=== PATIENT | male | born 1950 | race Caucasian/White ===

== ENCOUNTER 2019-03-16 08:05 | Inpatient (IN) ==
[2019-03-12 11:05] LABS: HEMATOCRIT 45.1 % (42.0-52.0); HEMOGLOBIN 14.6 g/dL (14.0-18.0); MCH 30.5 PG (27-31); MCHC 32.4 g/dL (33-37); MCV 94.4 FL (81-99); MPV 11.6 FL (7.4-10.4); RBC 4.78 XMIL (4.7-6.1); RDW 13.7 % (11.5-14.5); WBC 8.1 X1000 (4.8-10.8)
[2019-03-12 11:49] LABS: AGAP 15; BUN 15 mg/dL (8-22); CALCIUM 9.4 mg/dL (8.8-10.2); CHLORIDE 103 mmol/L (98-107); COSMO 289; CREATININE 1.1 mg/dL (0.7-1.2); ESTIMATED GFR > 60; GLUCOSE 221 mg/dL (70-104); POTASSIUM 4.6 mmol/L (3.5-5.1); SODIUM 141 mmol/L (136-145); TCO2 23 mmol/L (25-35)
[2019-03-16] MEDS ORDERED: KEFZOL 1 GM/D5W 2 GM/100 ML IVPB ONE (08:17)
[2019-03-16] MEDS ORDERED: LR 1,000 ML ONE (08:17)
[2019-03-16] MEDS ORDERED: FENTANYL ONE (10:49)
[2019-03-16] MEDS ORDERED: NEOSPORIN G.U. IRRIGANT ONE (11:02)
[2019-03-16] MEDS ORDERED: AK-FLUOR ONE (12:04)
[2019-03-16] MEDS ORDERED: NORCURON ONE (12:14)
[2019-03-16] MEDS ORDERED: DECADRON ONE (12:14)
[2019-03-16] MEDS ORDERED: XYLOCAINE-MPF 2% ONE (12:14)
[2019-03-16] MEDS ORDERED: ZOFRAN ONE (12:14)
[2019-03-16] MEDS ORDERED: OFIRMEV 1000 MG/ISOTONIC SOLN 1,000 MG/100 ML BOTTLE ONE (12:14)
[2019-03-16] MEDS ORDERED: AMIDATE ONE (12:14)
[2019-03-16] MEDS ORDERED: QUELICIN (DOSE) ONE (12:14)
[2019-03-16] MEDS ORDERED: ZEMURON ONE (13:15)
[2019-03-16] MEDS ORDERED: BRIDION ONE ×2 (13:21→13:52)
[2019-03-16] MEDS ORDERED: B & O 15A SUPP ONE (14:55)
[2019-03-16] MEDS: DILAUDID ONE ×2 (14:55→15:06)
[2019-03-16] MEDS ORDERED: NS 1,000 ML ONE (14:55)
[2019-03-16] MEDS ORDERED: SODIUM CHLORIDE 0.9% INJ PRN (15:15)
[2019-03-16] MEDS ORDERED: B & O 15A SUPP PR PRN (15:15)
[2019-03-16] MEDS ORDERED: LABETALOL IV PRN (15:15)
[2019-03-16] MEDS ORDERED: NORCO-10 PO PRN (15:15)
[2019-03-16] MEDS ORDERED: NORCO-7.5 PO PRN (15:15)
--- NOTE | 2019-03-16 17:09 | OPERATIVE NOTE ---
PROCEDURE DATE: 03/16/2019 SURGEON: Shai Mitchell MD. PREOPERATIVE DIAGNOSIS: Intermittent gross hematuria and bladder tumor. POSTOPERATIVE DIAGNOSIS: Intermittent gross hematuria and bladder tumor. PROCEDURE PERFORMED: Cystoscopic exam, left retrograde pyelogram, attempt right retrograde pyelogram but the ureteral orifice was not visualized, transurethral resection of bladder tumor greater than 10 square cm. ANESTHESIA: General endotracheal. FINDINGS: Cystoscopic exam: Urethra - greater than 26-Grenadian without stricture. Prostate - coapting lateral lobes, elevated bladder neck, length approximately 6 to 7 cm. Bladder - normal left ureteral orifice. Large papillary tumor starting at the mid trigone and going over the right side back past the trigone and up the right lateral wall to about the 11 o'clock position. Left retrograde ureteral pyelogram normal without filling defect. The right ureteral orifice was searched for, but could not be found underneath the papillary lesions. INDICATION FOR PROCEDURE: This 68-year-old male has a history of intermittent gross hematuria. Evaluation with CT scan revealed normal kidneys and a large mass in the bladder. In-office cystoscopic exam confirm the large papillary lesion. DESCRIPTION OF PROCEDURE: After informed consent was obtained from the patient and him receiving IV antibiotics, he was taken the main OR cystoscopy room, placed in the supine position. General anesthesia via endotracheal tube was placed. He was then paralyzed, placed in the low lithotomy position, and prepped and draped in the usual sterile fashion for cystoscopic exam. A 21-Grenadian sheath cystoscope was passed into the patient's urethra, prostate, and into the bladder. A 0.035 cone tip catheter was passed through the cystoscope, engaged in left ureteral orifice, contrast was injected. Again, no filling defects were seen. The right side was searched for, for about 10 minutes and could not be seen because of the large papillary lesion. The cystoscope was removed. The 26-Grenadian continuous flow Olympus resectoscope sheath was placed. The thin Gyrus loop electrode was placed. The left ureteral orifice was visualized and the tumor was resected. After 2 hours of resecting, the very superior portion of the tumor was still not resected but it was felt that he may be absorbing too much fluid and the resection was stopped. The right ureteral orifice was not visualized. The chips were removed from the bladder by irrigation. At completion, the left ureteral orifice was intact. The right side was not seen. It was searched for, however, it had been resected and will be dealt with at his second resection in 48 hours. The bladder was left distended. The resectoscope was removed. A 22-Grenadian hematuria catheter was passed through the patient's urethra, prostate, and bladder without difficulty. 30 mL of sterile water were placed in the Johnson balloon. Johnson was placed to gravity drain. The efflux was pink. Continuous bladder irrigation was started. He tolerated the procedure well. Estimated blood loss over 200 mL. He was taken to the recovery room in good condition. cc: Shai Mitchell MD
[2019-03-16] MEDS ORDERED: KLONOPIN PO PRN (19:01)
[2019-03-16] MEDS: KEFZOL 2 GM/D5W 2 GM/50 ML IVPB IV SCH (20:08)
[2019-03-16] MEDS: HUMULIN R SUBQ SCH (21:00)
[2019-03-16] MEDS: PHENERGAN IV PRN (21:08)
[2019-03-16] MEDS: PAXIL PO SCH (23:56)
[2019-03-16] MEDS: COLACE PO SCH (23:56)
[2019-03-16] MEDS: PERIDEX MT SCH (23:57)
[2019-03-16] MEDS: LIPITOR PO SCH (23:58)
[2019-03-16] MEDS: LOPRESSOR PO SCH (23:58)
[2019-03-16] MEDS: PENTASA PO SCH (23:59)
[2019-03-17] MEDS: PHENERGAN IV PRN (01:28)
[2019-03-17] MEDS: KEFZOL 2 GM/D5W 2 GM/50 ML IVPB IV SCH ×2 (05:15→10:39)
[2019-03-17] MEDS: NS 1,000 ML IV SCH ×2 (05:15→17:17)
[2019-03-17 06:55] LABS: HEMOGLOBIN 12.8 g/dL (14.0-18.0); MCV 96.9 FL (81-99); MPV 11.7 FL (7.4-10.4); RBC 4.13 XMIL (4.7-6.1); RDW 13.9 % (11.5-14.5); WBC 8.16 X1000 (4.8-10.8)
[2019-03-17] MEDS: HUMULIN R SUBQ SCH ×3 (07:00→17:52)
[2019-03-17 07:48] LABS: AGAP 11; BUN 10 mg/dL (8-22); CALCIUM 8.4 mg/dL (8.8-10.2); CHLORIDE 101 mmol/L (98-107); COSMO 278; CREATININE 1.1 mg/dL (0.7-1.2); ESTIMATED GFR > 60; GLUCOSE 161 mg/dL (70-104); SODIUM 138 mmol/L (136-145); TCO2 26 mmol/L (25-35)
--- NOTE | 2019-03-17 08:18 | Diag Imaging Result Doc PS360 ---
RETROGRADES 2 OR 3 FILMS - 03/16/2019 INDICATION: BLADDER TUMOR, LEFT RETROGRADE TECHNIQUE: Left sided ureterogram. The exam was performed by the patient's urologist. 11 images were obtained. COMPARISON: CT from 03/02/2019 FINDINGS: The left ureter and renal collecting system are normal. IMPRESSION: Negative exam. Electronically signed by Angelo Posadas 03/17/2019 8:16 AM
[2019-03-17] MEDS ORDERED: ELIQUIS PO SCH (09:00)
[2019-03-17] MEDS: COZAAR PO SCH (10:29)
[2019-03-17] MEDS: COLACE PO SCH ×2 (10:29→21:06)
[2019-03-17] MEDS: ZYLOPRIM PO SCH (10:30)
[2019-03-17] MEDS: NORVASC PO SCH (10:30)
[2019-03-17] MEDS: LOPRESSOR PO SCH ×2 (10:30→21:06)
[2019-03-17] MEDS: LOFIBRA PO SCH (10:30)
[2019-03-17] MEDS: GLUCOPHAGE PO SCH ×2 (10:30→17:23)
[2019-03-17] MEDS: PENTASA PO SCH ×4 (10:31→21:06)
[2019-03-17] MEDS: PERIDEX MT SCH ×2 (10:31→21:06)
[2019-03-17] MEDS ORDERED: TYLENOL PO PRN (17:06)
[2019-03-17] MEDS: LIPITOR PO SCH (21:06)
[2019-03-17] MEDS: PAXIL PO SCH (21:06)
[2019-03-18] MEDS: NS 1,000 ML IV SCH ×3 (00:14→13:59)
[2019-03-18] MEDS: HUMULIN R SUBQ SCH ×5 (00:14→21:00)
[2019-03-18] MEDS ORDERED: KEFZOL 1 GM/D5W 1 GM/50 ML IVPB ONE ×2 (10:15)
[2019-03-18] MEDS ORDERED: AK-FLUOR ONE (10:19)
[2019-03-18] MEDS ORDERED: DIPRIVAN 1% ONE (10:23)
[2019-03-18] MEDS ORDERED: XYLOCAINE-MPF 2% ONE (10:25)
[2019-03-18] MEDS ORDERED: REGLAN ONE (10:32)
[2019-03-18] MEDS ORDERED: PEPCID ONE (10:33)
[2019-03-18] MEDS ORDERED: ZEMURON ONE (10:49)
[2019-03-18] MEDS ORDERED: NEO-SYNEPHRINE ONE ×2 (10:56→11:40)
[2019-03-18] MEDS: ZYLOPRIM PO SCH ×2 (11:25→16:24)
[2019-03-18] MEDS: GLUCOPHAGE PO SCH ×2 (11:25→16:23)
[2019-03-18] MEDS: COLACE PO SCH ×3 (11:25→20:32)
[2019-03-18] MEDS: PENTASA PO SCH ×4 (11:26→20:32)
[2019-03-18] MEDS: NORVASC PO SCH ×2 (11:26→16:24)
[2019-03-18] MEDS: LOPRESSOR PO SCH ×2 (11:26→20:32)
[2019-03-18] MEDS: PERIDEX MT SCH ×2 (11:26→20:32)
[2019-03-18] MEDS: COZAAR PO SCH ×2 (11:27→16:23)
[2019-03-18] MEDS: LOFIBRA PO SCH ×2 (11:27→16:24)
[2019-03-18] MEDS ORDERED: ROBINUL ONE (11:48)
[2019-03-18] MEDS ORDERED: NEOSTIGMINE ONE (11:48)
[2019-03-18] MEDS ORDERED: B & O 15A SUPP ONE (13:15)
[2019-03-18] MEDS: NORCO-5 PO PRN (13:58)
--- NOTE | 2019-03-18 19:03 | OPERATIVE NOTE ---
PROCEDURE DATE: 03/18/2019 SURGEON: Shai Mitchell MD PREOPERATIVE DIAGNOSIS: Bladder tumors. POSTOPERATIVE DIAGNOSIS: Bladder tumors. PROCEDURE PERFORMED: 1. Cystoscopic exam. 2. Right retrograde ureteral pyelogram. 3. Place right double-J stent. 4. Transurethral resection of bladder tumor about 3 cm in diameter. ANESTHESIA: General endotracheal. FINDINGS: Cystoscopic exam: Urethra-greater than 26-Equatorial Guinean without stricture. Prostate - Collapsing lateral lobes elevated. Bladder neck length approximately 6.5 to 7 cm. Bladder - Normal left ureteral orifice. Right ureteral orifice was previously resected. The tumor bed that was resected 2 days ago was not bleeding and appeared to be healing well. There was remaining tumor at about the 10:30 to 12 o'clock position on the bladder neck with a diameter of about 3 cm. INDICATION FOR PROCEDURE: This 68-year-old male had intermittent gross hematuria. Evaluation revealed a very large bladder tumor that covered most of the right wall of the bladder. He is 2 days status post resection of the great majority of the tumor, but after 2 hours of resecting it was decided to stop and schedule for today. DESCRIPTION OF PROCEDURE: After informed consent was obtained from the patient, him receiving IV antibiotics, he was taken the main OR cystoscopy room, placed in supine position. General endotracheal anesthesia was achieved. He was then placed in the low lithotomy position and prepped and draped in the usual sterile fashion for cystoscopic exam. A 21-Equatorial Guinean cystoscope was passed through the patient's urethra, prostate, and in the bladder. There were some clots adhered to the previous resection site. The left ureteral orifice was normal. The right ureteral orifice could not be found. He received 1 mL of Fluorescein dye and eventually the right ureteral orifice was found. A 5-Equatorial [place]ine[place] open-ended ureteral catheter was passed through the cystoscope, a 0.035 ZIPwire was passed through the open-ended ureteral catheter and up into the right ureter. The wire was removed. Contrast was injected. Again, no filling defects were seen in the upper collecting system or ureter. The distal ureter was somewhat dilated. The wire was returned to the open-ended ureteral catheter and advanced up into the kidney. The catheter was removed and a 6-Equatorial Guinean, 26 cm double-J stent was passed over the ZIPwire and up into the kidney. The renal end was verified by fluoroscopic exam, bladder end directly visualized, stent removal string was removed. The 26-Equatorial Guinean continuous flow resectoscope sheath was placed. The remaining part of the tumor was resected and sent to Pathology in 1 container. Hemostasis was achieved with electrocautery. At completion, the left ureteral orifice was normal the right ureteral orifice had a double-J stent in place. No bleeding areas were seen. The bladder was left distended. The resectoscope was removed. A 22-Equatorial Guinean, 3 way Johnson was passed through the patient's urethra, prostate, and bladder without difficulty. Then, 30 mL sterile water placed in Johnson's balloon. The efflux was light green and pink in color (Fluorescein dye). Continuous bladder irrigation of normal saline was started and it completely cleared. He tolerated the procedure well. Estimated blood loss 20 mL. He was taken to recovery room in good condition. cc: Shai Mitchell MD
[2019-03-18] MEDS: PAXIL PO SCH (20:32)
[2019-03-18] MEDS: LIPITOR PO SCH (20:32)
[2019-03-19] MEDS: NORCO-5 PO PRN (04:19)
[2019-03-19] MEDS: HUMULIN R SUBQ SCH (07:00)
[2019-03-19 07:27] VITALS: BP 129/74
[2019-03-19] MEDS: NS 1,000 ML IV SCH (07:58)
[2019-03-19] MEDS: ZYLOPRIM PO SCH (08:45)
[2019-03-19] MEDS: GLUCOPHAGE PO SCH (08:45)
[2019-03-19] MEDS: NORVASC PO SCH (08:45)
[2019-03-19] MEDS: PENTASA PO SCH (08:45)
[2019-03-19] MEDS: COLACE PO SCH (08:45)
[2019-03-19] MEDS: COZAAR PO SCH (08:45)
[2019-03-19] MEDS: LOPRESSOR PO SCH (08:45)
[2019-03-19] MEDS: PERIDEX MT SCH (08:45)
--- NOTE | 2019-03-19 10:08 | Diag Imaging Result Doc PS360 ---
EXAM: RETROGRADES 2 OR 3 FILMS 03/18/2019 HISTORY: STENT PLACEMENT RIGHT, RETROGRADE RIGHT TECHNIQUE: 28 images COMMENT: The right ureteral orifice was cannulated and contrast was injected through the cannula in the distal ureter. The ureter proximal to this is normal in appearance without evidence of obstruction or fixed intraluminal filling defect. A stent was placed at the termination of the procedure. IMPRESSION: Right ureteral stent placement. Electronically signed by Keith Osullivan 03/19/2019 10:06 AM
--- NOTE | 2019-03-20 06:15 | DISCHARGE SUMMARY ---
ADMISSION DATE: 03/16/2019 DISCHARGE DATE: 03/19/2019 DISCHARGE DIAGNOSES: 1. Large bladder tumor. 2. Hypertension. 3. Coronary artery disease. 4. Elevated cholesterol. 5. Anxiety. 6. Obesity. 7. Diabetes. DISCHARGE MEDICATIONS: 1. [place] 7.5 one by mouth every 4 hours as needed for pain dispensed 10. 2. Allopurinol. 3. Norvasc. 4. Lipitor. 5. Eliquis when the urine has completely cleared. 6. Metformin. 7. Klonopin. 8. Lopressor. 9. Paxil. HOSPITAL COURSE: This 68-year-old male had a long history of intermittent gross hematuria. Evaluation revealed a large bladder tumor that covered most of the right side of his bladder. He underwent transurethral resection of most of the tumor on the day of admission, but because of the size of the tumor and time of resection, it was stopped, and the rest of the tumor was removed at his second resection. The tumor had covered the right ureteral orifice, and this was resected and a double-J stent has been placed to allow this to heal. At discharge, vital signs are stable. He is afebrile tolerating a regular diet, he is up and walking. He will be discharged home with his Johnson catheter. He will return to the Urology Clinic in the morning for catheter removal. He will call if he has any problems. cc: Shai Mitchell MD
[2019-03-20] MEDS ORDERED: ELIQUIS PO SCH (09:00)
== END 2019-03-19 10:24 | disposition home or self-care (01) | DRG 657 ==
LOC: OPS 08:05 → PAT 08:05 → 4N 08:05
PROVIDERS: ADMIT Urology; ATTEND Urology

== ENCOUNTER 2019-03-30 22:09 | Inpatient (IN) ==
[2019-03-30] MEDS ORDERED: PHENERGAN IM ONE (23:24)
[2019-03-30] MEDS ORDERED: DEMEROL IM ONE (23:25)
--- NOTE | 2019-03-31 00:34 | PROVIDER DOCUMENTATION ---
HPI-Male Problem - General Chief Complaint: Male Stated Complaint: MALE Time Seen by Provider: 03/31/19 00:35 Source: patient, family Allergies/Adverse Reactions: Patient Allergies Allergy/AdvReac Type Severity Reaction Status Date / Time metoclopramide HCl * AdvReac Unknown Verified 03/30/19 22:53 [From Reglan] Home Medications: Home Medication List Medication Instructions Recorded Confirmed Last Taken Type Metoprolol [Lopressor] 50 mg PO BID 05/07/12 03/30/19 03/16/19 07:00 History Allopurinol 300 mg PO DAILY 07/25/12 03/30/19 03/15/19 07:00 History Mesalamine E.r. [Pentasa] 1,000 mg PO 407/25/12 03/30/19 03/15/19 21:00 History ATORVAstatin [Lipitor] 40 mg PO QHS 06/06/14 03/30/19 03/15/19 21:00 History Fenofibrate 160 mg PO DAILY 06/06/14 03/30/19 03/15/19 07:00 History Losartan [Cozaar] 100 mg PO DAILY 06/06/14 03/30/19 03/15/19 07:00 History Amlodipine [Norvasc] 10 mg PO DAILY 03/12/19 03/30/19 03/16/19 07:00 History Apixaban [Eliquis] 5 mg PO DAILY 03/12/19 03/30/19 03/13/19 History Clonazepam 0.5 mg PO PRN PRN 03/12/19 03/30/19 03/15/19 21:00 History Metformin HCl 850 mg PO BID 03/12/19 03/30/19 03/15/19 21:00 History Paroxetine [Paxil] 20 mg PO DAILY 03/12/19 03/30/19 03/15/19 21:00 History - History of Present Illness-Male Nature of Presenting Problem: patient with bladder ca has had several clotted catheters had it piulled out today now distended and painful discueesd with urology and to be transfered Location of Complaint: reports: suprapubic Radiation: reports: suprapubic Quality of Pain: reports: cramping, pressure Severity in ED: reports: severe Onset/Duration: reports: this afternoon Timing: reports: getting worse Context/Activities at Onset: reports: none Urinary Symptoms: reports: retention Associated Symptoms: reports: nausea Similar Symptoms Previously?: Yes Recently seen or treated by another doctor?: Yes Review of Systems - Adult - REVIEW OF SYSTEMS - ADULT Constitutional: reports: no symptoms reported Eyes: reports: no symptoms reported Ears, Nose, Mouth & Throat: reports: no symptoms reported Cardiovascular: reports: edema, irregular heart rate Respiratory: reports: no symptoms reported Gastrointestinal: reports: no symptoms reported Genitourinary: reports: hematuria, urinary retention Musculoskeletal: reports: no symptoms reported Integumentary: reports: no symptoms reported Neurological: reports: no symptoms reported Psychiatric: reports: no symptoms reported Hematologic/Lymphatic: reports: no symptoms reported Allergic/Immunologic: reports: no symptoms reported Past History - Adult - PAST MEDICAL HISTORY-ADULT Review of Records: reports: Nursing Assessment Review, Medications Reviewed, Social history reviewed & non-contributory. Cardiovascular: reports: A-Fib, HTN, hyperlipidemia Respiratory: reports: sleep apnea Gastrointestinal: reports: Crohn's, GERD, other (gastroparesis; small bowel obs truction) Musculoskeletal: reports: other (gout) - PRIOR SURGERIES/PROCEDURES Surgical/Procedure History: reports: hernia repair - IMMUNIZATION STATUS Childhood Immunizations: See Nurse Assessment Flu Vaccine: UTD - FAMILY HISTORY Family History: reviewed, not pertinent Physical Exam-General - PHYSICAL EXAM-ADULT Initial Vital Signs Reviewed: Yes - CONSTITUTIONAL General Appearance: moderate distress - EYES Eyes: PERRL/EOMI - HEAD, EARS, NOSE, MOUTH & THROAT HENMT: normocephalic/atraumatic - NECK Neck: supple - RESPIRATORY Respiratory: no respiratory distress - CARDIOVASCULAR Cardiovascular: regular rate, rhythm - GASTROINTESTINAL (ABDOMEN) Abdominal Exam: normal bowel sounds, soft, distended, tenderness. negative: rebound - LYMPHATIC Lymphatic: no adenopathy - MUSCULOSKELETAL Back Exam: normal inspection, no CVA tenderness Extremity: normal range of motion Progress - PLAN OF CARE/RESULTS Progress/Plan/Lab Results: Vital Signs - 8 hr 03/30/19 22:15 Temperature 97.7 F Pulse Rate 84 Respiratory Rate 16 Blood Pressure 138/78 O2 Sat by Pulse Oximetry 96 Laboratory Results - last 24 hr 03/30/19 22:55 POC Glucose 112 H Orders Category Date Time Status Admit [facility] Routine AdmDCTranf 03/31/19 00:06 Active Irrigate Bladder DIRECTED Care 03/30/19 23:41 Active Meperidine [Demerol] Med 03/30/19 23:25 Discontinued 50 mg IM NOW ONE Promethazine [Phenergan] Med 03/30/19 23:24 Discontinued 25 mg IM NOW ONE Transfer/Admit Order [TRANSFER] Routine Transfer 03/31/19 00:07 Ordered Departure - Departure Date of Disposition Decision: 03/31/19 Time of Disposition Decision: 00:35 DIAGNOSIS: Postoperative urinary retention Disposition: ADMITTED INPATIENT 09 Certified Medical Emergency: Emergent Condition: Stable Referrals and Follow-Ups: Shayna Cole MD [Primary Care Provider] - - Critical Care Note This patient required my direct & personal management of CC.: No Attestation - Physician/ SUMIT Attestation Patient care was provided by Advanced Practice Provider:: No The physician spent face to face time with patient:: Yes Advanced Practice Provider documentation review:: Supervising physician onsite and consulted in the evaluation and care of this patient. The physician did have a face to face encounter with the patient.
[2019-03-31] MEDS ORDERED: DEMEROL PO ONE (01:15)
[2019-03-31] MEDS ORDERED: DEMEROL IM ONE (01:20)
[2019-03-31] MEDS ORDERED: ZOFRAN ODT PO ONE (01:28)
[2019-03-31] MEDS ORDERED: NS 1,000 ML IV ONE ×2 (01:37→03:51)
[2019-03-31 02:08] LABS: BASO# 0.04 X1000 (0.0-0.2); BASO% 0.3 % (0.0-0.8); EOS# 0.66 X1000 (0.0-0.7); EOS% 4.9 % (0.0-10.0); HEMATOCRIT 36.9 % (42.0-52.0); HEMOGLOBIN 11.7 g/dL (14.0-18.0); IMM GRAN# 0.04 X1000 (0.0-0.04); IMM GRAN% 0.3 % (0.0-0.5); LYMPH# 3.37 X1000 (1.2-3.4); LYMPH% 24.8 % (20.5-51.1); MCH 29.5 PG (27-31); MCHC 31.7 g/dL (33-37); MCV 92.9 FL (81-99); MONO# 0.93 X1000 (0.11-0.59); MONO% 6.8 % (1.7-9.3); MPV 11.5 FL (7.4-10.4); NEUT# 8.55 X1000 (1.4-6.5); NEUT% 62.9 % (42.2-75.2); PLT 379 X1000 (130-400); RBC 3.97 XMIL (4.7-6.1); RDW 12.7 % (11.5-14.5); WBC 13.59 X1000 (4.8-10.8)
[2019-03-31 02:15] LABS: ALBUMIN 3.9 g/dL (3.5-5.0); CALCIUM 8.9 mg/dL (8.8-10.2); CREATININE 1.2 mg/dL (0.7-1.2); TOTAL BILIRUBIN 0.4 mg/dL (0.20-1.00); TOTAL PROTEIN 7.4 g/dL (6.3-8.3)
[2019-03-31 02:18] LABS: POTASSIUM 5.1 mmol/L (3.5-5.1)
[2019-03-31] MEDS ORDERED: MORPHINE IV ONE ×2 (03:49→03:51)
[2019-03-31] MEDS ORDERED: ZOFRAN IV PRN (04:06)
[2019-03-31] MEDS ORDERED: MORPHINE IV PRN (04:08)
[2019-03-31 04:49] LABS: URINE SOURCE CATH
[2019-03-31 05:37] LABS: UR EPITHELIAL CELLS <10 /HPF (<10); URINE BACTERIA NEGATIVE /HPF; URINE RBC <10 /HPF (<10); URINE WBC <10 /HPF (<10)
[2019-03-31 05:39] LABS: BILIRUBIN URINE MODERATE (NEGATIVE); BLOOD URINE LARGE (NEGATIVE); COLOR RED; GLUCOSE URINE 70 mg/dL (NEGATIVE); KETONE URINE 40 mg/dL (NEGATIVE); LEUKOCYTES URINE SMALL (NEGATIVE); NITRITE URINE POSITIVE (NEGATIVE); PH URINE 7.5; PROTEIN URINE 200 mg/dL (NEGATIVE); SP GRAVITY URINE 1.037; TURBIDITY URINE TURBID (CLEAR); UROBILINOGEN URINE >12 mg/dL (NORMAL)
--- NOTE | 2019-03-31 06:51 | EKG Report ---
Test Performed on : 03/31/2019 01:54:53 AM Test Reason : HYPOTENTION Blood Pressure : / mmHG Vent. Rate : 093 BPM Atrial Rate : 028 BPM P-R Int : 000 ms QRS Dur : 106 ms QT Int : 376 ms P-R-T Axes : 000 -24 032 degrees QTc Int : 467 ms Atrial fibrillation. Abnormal ECG When compared with ECG of 21-MAR-2019 13:13, (Unconfirmed) Atrial fibrillation. has replaced Sinus rhythm. Minimal criteria for Anterior infarct are no longer present T wave inversion less evident in Anterolateral leads Confirmed by Napoleon Chris MD ([id number]), health editor Rehana Hammer ([id number]) on 05/04/2019 12:38:14 PM
--- NOTE | 2019-03-31 06:56 | HISTORY AND PHYSICAL ---
PRIMARY CARE PHYSICIAN: Dr. Cole. CHIEF COMPLAINT: Difficulty voiding and bloody urine. HISTORY OF PRESENTING ILLNESS: A 68-year-old male with a history of atrial fibrillation, Crohn's, diabetes mellitus type 2, bladder tumor, who apparently underwent cystoscopy and transurethral resection of bladder tumor 2 weeks ago. He presented to the emergency department with complaint of worsening suprapubic pain and bloody urine that was draining from his Johnson catheter. He was initially seen at [facility] and his case was discussed with Urology, who recommended the patient be transferred to [facility] for further evaluation and management. At the time of my examination, patient complained of moderate amount of suprapubic pain and was complaining that he was having gross hematuria. At time of my examination, he had denied, however, any headache, fever, chills, chest pain, shortness of breath or any weight changes. Complained of suprapubic pain. The patient also stated that he just recently started back his Eliquis. PAST MEDICAL HISTORY: Includes atrial fibrillation, Crohn's, diabetes mellitus type 2, hypertension, hyperlipidemia. PAST SURGICAL HISTORY: Bladder surgery/cystoscopy and resection of bladder tumor, hernia repair. ALLERGIES: Reglan. CURRENT MEDICATIONS: Allopurinol 300 mg p.o. daily, amlodipine 10 mg p.o. daily, Eliquis 5 mg p.o. daily, atorvastatin 40 mg p.o. daily, clonazepam 0.5 mg p.o. daily, fenofibrate 160 mg p.o. daily, losartan 100 mg p.o. daily, Pentasa 1000 mg p.o. 4 times a day, metformin 850 mg p.o. b.i.d., metoprolol 50 mg p.o. b.i.d., Paxil 20 mg p.o. daily. SOCIAL HISTORY: He is a former smoker. Admits to social alcohol use. Denies any illicit drug use. FAMILY HISTORY: Positive for coronary disease in father. REVIEW OF SYSTEMS: Fourteen point review of system as listed in HPI. Other systems negative. PHYSICAL EXAMINATION: GENERAL: Cooperative, friendly male. He still having some suprapubic pain. VITAL SIGNS: Temperature 97.7 degrees, pulse 84, respirations 16, blood pressure 130/78. HEENT: Atraumatic, normocephalic. Extraocular movements intact. PERRLA. NECK: No masses. CHEST: Clear to auscultation. CARDIOVASCULAR: Regular rate and rhythm. ABDOMEN: Soft. Suprapubic tenderness. EXTREMITIES: No edema. NEUROLOGIC: He is awake, alert, alert oriented x3. GENITOURINARY: There is bladder distention. SKIN: Warm. LABORATORIES AND STUDIES: WBC 13.59, hemoglobin 11.7, hematocrit 36.9, platelets 379,000. Sodium 133, potassium 5.1, chloride 102, CO2 17, BUN is 18, creatinine is 1.2, glucose 178. ASSESSMENT: A 68-year-old male with a history of atrial fibrillation, Crohn's, diabetes mellitus type 2, and hypertension, who apparently underwent cystoscopy and transurethral resection of a bladder tumor about 2 weeks ago. Apparently, had a Johnson catheter placed and recently he developed a moderate amount hematuria which was noted in the catheter bag. He was also having a moderate amount is suprapubic pain. He was initially seen in [facility] and his case was discussed with Urology, who recommended the patient be transferred to [facility] for further evaluation and management. 1. Postoperative gross hematuria. 2. Urinary retention. 3. Chronic atrial fibrillation. 4. Diabetes mellitus type 2. 5. Hypertension. PLAN: 1. We will admit patient to [facility]. 2. We will put Johnson catheter and continue with bladder irrigation. 3. Consult Urology. 4. We will hold his anticoagulation for his atrial fibrillation due to hematuria. 5. We will monitor blood glucose and put patient on sliding scale insulin regimen. 6. Monitor blood pressure. Resume antihypertensive agents. 7. We will hold off any DVT prophylaxis due to active hematuria. 8. We will continue to follow and reassess, make further recommendation based on patient's clinical course. cc: Jamari Moseley MD
[2019-03-31] MEDS: HUMULIN R SUBQ SCH ×4 (06:57→20:39)
[2019-03-31] MEDS ORDERED: KLONOPIN PO PRN (08:53)
[2019-03-31] MEDS: PENTASA PO SCH ×4 (09:34→20:39)
[2019-03-31] MEDS: ZYLOPRIM PO SCH (09:34)
[2019-03-31] MEDS: LOPRESSOR PO SCH ×2 (09:34→20:39)
[2019-03-31] MEDS: PAXIL PO SCH (09:34)
--- NOTE | 2019-03-31 13:19 | CONSULTATION ---
DATE OF CONSULTATION: 03/31/2019 ATTENDING AND REFERRING PHYSICIAN: Hospitalist. CHIEF COMPLAINT: Gross hematuria and clot retention. HISTORY OF PRESENT ILLNESS: This 68-year-old male has a long history of intermittent gross hematuria. Evaluation revealed a large bladder tumor. He is status post transurethral resection of the bladder tumor. The tumor was so large that it had to be removed in two stages. 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 The patient has a history of atrial fibrillation, and stopped the Eliquis for several days before the procedure, and restarted it soon after the procedure. He developed increasing gross hematuria and then clot retention. He was seen in the Urology Clinic, and a 20-Czech Johnson was placed, and he was hand irrigated until the urine output was clear. He then again developed gross hematuria and finally clot retention, and went to the emergency room and was admitted. PAST MEDICAL HISTORY: Coronary artery disease, atrial fibrillation, Crohn's disease, diabetes, hypothyroidism, hypertension, elevated cholesterol. CURRENT MEDICATIONS: Documented on the chart. His Eliquis has been held. PAST SURGICAL HISTORY: Hernia repair, cystoscopic exam with retrograde pyelograms, transurethral resection of a bladder tumor at two different sessions. More than 50% of his bladder surface was removed. SOCIAL HISTORY: Social use of alcohol. No recent tobacco use. ALLERGIES: He is allergic to Reglan. REVIEW OF SYSTEMS: Usually in good health. He states he is overweight. He denies problems with strokes or seizures or recent bowel problems. PHYSICAL EXAMINATION: General: An obese, age-apparent, normally-developed, white male, oriented in all ways, and cooperative. HEENT: Normal for age. Lungs: Clear. Cardiovascular: Irregular rate and rhythm. Abdomen: Obese, soft, nontender. No hepatosplenomegaly or masses. Normal bowel sounds. : Uncircumcised male with a Johnson catheter in place, draining light-pink urine, with bladder irrigation. Both testes are down and palpably normal. Small bilateral hydroceles. Rectal: Deferred. Extremities: No clubbing, cyanosis, or edema. Neurologic: No focal deficits. LABORATORY DATA: He has a white count of 13.59, hemoglobin 11.7, hematocrit of 36.9, and platelets are 379,000. Serum electrolytes have sodium 133, potassium 5.1, chloride 102, bicarb 17, BUN 18, creatinine 1.2, serum glucose 178. IMPRESSION: 1. Urothelial carcinoma, status post resection with one set of hematuria, clots, and retention after restarting Eliquis. 2. Multiple medical problems. RECOMMENDATIONS: 1. Continue continuous bladder irrigation, weaning off as able. Hand irrigate for clots as needed. 2. If continues with clots, will need cystoscopic exam to cauterize any bleeding areas noted. Thank you for this consultation. cc: Shai Mitchell MD
[2019-03-31 14:10] LABS: HEMATOCRIT 34.8 % (42.0-52.0)
--- NOTE | 2019-03-31 16:03 | PROGRESS NOTE ---
DATE: 03/31/2019 Patient still with significant hematuria, but he is flowing well with continuous irrigation. Urology following and will consider cystoscopy if bleeding continues. Recheck blood counts only slightly decreased from admission. Continue monitoring blood pressure and diabetes.
[2019-03-31] MEDS: LIPITOR PO SCH (20:39)
[2019-04-01 05:54] LABS: BASO# 0.07 X1000 (0.0-0.2); BASO% 0.7 % (0.0-0.8); EOS% 11.5 % (0.0-10.0); HEMATOCRIT 35.2 % (42.0-52.0); HEMOGLOBIN 11.1 g/dL (14.0-18.0); LYMPH# 3.18 X1000 (1.2-3.4); LYMPH% 30.5 % (20.5-51.1); MCH 30.5 PG (27-31); MCHC 31.5 g/dL (33-37); MCV 96.7 FL (81-99); MONO# 0.82 X1000 (0.11-0.59); MONO% 7.9 % (1.7-9.3); MPV 11.5 FL (7.4-10.4); NEUT# 5.15 X1000 (1.4-6.5); NEUT% 49.4 % (42.2-75.2); PLT 274 X1000 (130-400); RBC 3.64 XMIL (4.7-6.1); RDW 13.2 % (11.5-14.5); WBC 10.42 X1000 (4.8-10.8)
[2019-04-01] MEDS: HUMULIN R SUBQ SCH ×4 (06:09→21:45)
[2019-04-01 06:30] LABS: AGAP 16; BUN 12 mg/dL (8-22); CALCIUM 8.3 mg/dL (8.8-10.2); CHLORIDE 103 mmol/L (98-107); COSMO 275; CREATININE 1.1 mg/dL (0.7-1.2); ESTIMATED GFR > 60; GLUCOSE 132 mg/dL (70-104); POTASSIUM 5.2 mmol/L (3.5-5.1); SODIUM 137 mmol/L (136-145); TCO2 18 mmol/L (25-35)
[2019-04-01 07:04] LABS: EOS 10 % (1-10); LYMPHS 30 % (21-51); MONO 7 % (1-9); SEGS 53 % (42-75)
[2019-04-01] MEDS: LOPRESSOR PO SCH ×2 (08:25→20:08)
[2019-04-01] MEDS: PAXIL PO SCH (08:25)
[2019-04-01] MEDS: PENTASA PO SCH ×4 (08:25→20:08)
[2019-04-01] MEDS: ZYLOPRIM PO SCH (08:25)
--- NOTE | 2019-04-01 16:20 | PROGRESS NOTE ---
DATE: 04/01/2019 SUBJECTIVE: Patient resting in bed. Not in any obvious distress. OBJECTIVE: Vital Signs: Temperature 97.5 degrees, pulse 86, respiratory rate is 17, blood pressure 109/62, oxygen saturation 97%. HEENT: Atraumatic, normocephalic. Cardiovascular: S1, S2. Respiratory system: Has evidence of good air entry bilaterally. Abdomen: Soft, nontender. No masses felt. Extremities: No evidence of significant edema. Central nervous system: No obvious focal deficit noted. LABORATORY DATA: WBCs 10.42, hematocrit is 35.2 with a platelet count of 274,000. Sodium is 137, potassium 5.2, chloride is 103, creatinine is 1.1. ASSESSMENT AND PLAN: 1. Bladder tumor status post transurethral resection. This has now been complicated with hematuria. The patient now getting continuous bladder irrigation. Urology is following. Cystoscopy planned. 2. Chronic atrial fibrillation. Continue rate controlling agent (metoprolol). 3. History of Crohn disease. Continue mesalamine. 4. Diabetes mellitus type 2. Monitor blood sugar levels. Maintain patient on sliding scale insulin. 5. Hypertension. Continue current antihypertensive regimen. 6. Hyperlipidemia. Continue atorvastatin. 7. Deep vein thrombosis prophylaxis. Sequential compression devices. cc: Mauri Hernandez MD MTDD
[2019-04-01] MEDS: LIPITOR PO SCH (20:08)
[2019-04-02 06:16] LABS: BASO# 0.06 X1000 (0.0-0.2); BASO% 0.9 % (0.0-0.8); EOS# 0.79 X1000 (0.0-0.7); EOS% 11.5 % (0.0-10.0); IMM GRAN# 0.02 X1000 (0.0-0.04); IMM GRAN% 0.3 % (0.0-0.5); LYMPH# 2.01 X1000 (1.2-3.4); LYMPH% 29.3 % (20.5-51.1); MCH 29.4 PG (27-31); MCHC 30.6 g/dL (33-37); MCV 96.3 FL (81-99); MONO% 7.3 % (1.7-9.3); MPV 11.8 FL (7.4-10.4); NEUT# 3.47 X1000 (1.4-6.5); NEUT% 50.7 % (42.2-75.2); PLT 264 X1000 (130-400); RBC 3.74 XMIL (4.7-6.1); RDW 12.9 % (11.5-14.5); WBC 6.85 X1000 (4.8-10.8)
[2019-04-02] MEDS: HUMULIN R SUBQ SCH ×4 (06:25→20:40)
[2019-04-02 06:47] LABS: AGAP 14; ALB/GLOB RATIO 1.3; ALBUMIN 3.6 g/dL (3.5-5.0); ALKALINE PHOSPHATASE 50 U/L (32-122); BUN 10 mg/dL (8-22); CALCIUM 8.8 mg/dL (8.8-10.2); CHLORIDE 104 mmol/L (98-107); COSMO 282; ESTIMATED GFR > 60; GLUCOSE 137 mg/dL (70-104); GOT 17 U/L (10-34); GPT 10 U/L (10-44); POTASSIUM 4.2 mmol/L (3.5-5.1); SODIUM 141 mmol/L (136-145); TCO2 23 mmol/L (25-35); TOTAL PROTEIN 6.4 g/dL (6.3-8.3)
[2019-04-02] MEDS: PAXIL PO SCH (08:00)
[2019-04-02] MEDS: PENTASA PO SCH ×4 (08:00→20:44)
[2019-04-02] MEDS: LOPRESSOR PO SCH ×2 (08:00→20:44)
[2019-04-02] MEDS: ZYLOPRIM PO SCH (08:00)
[2019-04-02] MEDS: LEVAQUIN PO SCH (08:01)
--- NOTE | 2019-04-02 10:40 | PROGRESS NOTE ---
DATE: 04/02/2019 SUBJECTIVE: The patient is resting comfortably in bed. Not in any obvious distress. OBJECTIVE: Vital Signs: Temperature is 97.7 degrees, pulse 91, respiratory rate 17, blood pressure is 129/85, oxygen saturation is 97%. HEENT: Atraumatic, normocephalic. He is anicteric. Extraocular movements intact. No oral lesions. Neck: No lymphadenopathy or thyromegaly. Cardiovascular: S1, S2. Respiratory: Has evidence of good air entry bilaterally. Abdomen: Soft, nontender. No masses felt. Extremities: No evidence of edema. Central Nervous System: No obvious focal deficit noted. LABORATORY DATA: WBC 6.85, hematocrit 36.0, with a platelet count of 264,000. Sodium is 141, potassium 4.2, chloride is 104, bicarb 23, BUN is 10, creatinine 1.0. ASSESSMENT AND PLAN: 1. Bladder tumor, status post transurethral resection, now complicated with hematuria. Patient now getting continuous bladder irrigation. Urology is following. Cystoscopy is planned for later today. 2. Chronic atrial fibrillation. Continue rate-controlling agent. Hold off on anticoagulation in light of hematuria. 3. History of Crohn's disease. Continue mesalamine. 4. Type 2 diabetes mellitus. Continue blood sugar monitoring as well as sliding scale insulin. 5. Hypertension. Continue current antihypertensive regimen. 6. Hyperlipidemia. Continue atorvastatin. 7. Deep vein thrombosis prophylaxis. Sequential compression devices. 8. Gastrointestinal prophylaxis. Proton pump inhibitor. cc: Mauri Hernandez MD
[2019-04-02] MEDS ORDERED: DIPRIVAN 1% ONE (14:10)
[2019-04-02] MEDS ORDERED: QUELICIN (DOSE) ONE (14:11)
[2019-04-02] MEDS ORDERED: XYLOCAINE-MPF 2% ONE (14:11)
[2019-04-02] MEDS ORDERED: KEFZOL 1 GM/D5W 2 GM/100 ML IVPB ONE (15:12)
[2019-04-02] MEDS ORDERED: ZEMURON ONE (15:44)
[2019-04-02] MEDS ORDERED: ZOFRAN ONE (15:45)
[2019-04-02] MEDS ORDERED: NEO-SYNEPHRINE ONE (15:55)
[2019-04-02] MEDS ORDERED: SODIUM CHLORIDE 0.9% 10 ML ONE (15:55)
[2019-04-02] MEDS ORDERED: NEOSTIGMINE ONE (16:31)
[2019-04-02] MEDS ORDERED: ROBINUL ONE (16:31)
[2019-04-02] MEDS: DILAUDID ONE ×2 (17:17→17:20)
--- NOTE | 2019-04-02 19:54 | OPERATIVE NOTE ---
PROCEDURE DATE: 04/02/2019 SURGEON: Shai Mitchell MD PREOPERATIVE DIAGNOSIS: History of urothelial carcinoma with clot retention. POSTOPERATIVE DIAGNOSIS: History of urothelial carcinoma with clot retention. PROCEDURE PERFORMED: Cystoscopic exam, clot irrigation (greater than 1000 mL of clot) and fulguration of the diffuse bleeding tumor bed. ANESTHESIA: General endotracheal. FINDINGS: Cystoscopic exam: Urethra--greater than 26-Jordanian without stricture. Prostate-- coapting lateral lobes, elevated bladder neck, length approximately 6.5 cm. Bladder--There was a very large amount of clot when the scope was passed into the bladder. This was irrigated out for over 1 hour, and again over 1000 mL of clot were removed. After the clot was removed, the 26- Jordanian continuous flow resectoscope sheath was placed. The loop electrode was placed, and hemostasis was achieved from the diffuse bleeding areas at the resected tumor base. A double-J stent was in place on the right. The left ureteral orifice was normal. There were grade 3 trabeculations and several large diverticula throughout. No clots were left in the diverticula. No papillary lesions were noted in any part of the bladder. There was bleeding from the previously resected tumor base. A double-J stent was in place on the right. The left ureteral orifice was normal. There were several large diverticula in the bladder, but no clots or papillary lesions were noted in any part of the bladder. Rectal exam revealed a prostate of around 70 g smooth and symmetric. INDICATION FOR PROCEDURE: This 68-year-old male had a history of intermittent gross hematuria. Evaluation revealed a large bladder tumor that had to be removed at 2 different settings. He has significant coronary artery disease and history of atrial fibrillation, and was on Eliquis. He started his Eliquis back the day after the second resection. He initially did well but then started having significant gross hematuria and eventually clot retention. DESCRIPTION OF PROCEDURE: After informed consent was obtained from the patient and him receiving IV antibiotics, he was taken to the main OR cystoscopy room, placed in the supine position. General endotracheal anesthesia was achieved. He was then placed in a low lithotomy position and prepped and draped in the usual sterile fashion for cystoscopic exam. A 21-Jordanian ureterocystoscope was passed through the patient's urethra, prostate, and in the bladder. A Chip tip syringe was used to irrigate the large amount of clot from the bladder. Again this was over an hour's worth of irrigation. After all the clot was removed, there were still diffuse bleeding areas. The cystoscope was removed, and a 26-Jordanian continuous flow resectoscope sheath was placed. The loop electrode was placed, and hemostasis was achieved from the entire tumor bed starting at the 7 o'clock position, going all the way up to the 12 o'clock position, all the way to above the right ureteral orifice and the right lateral wall. At completion, no clots were seen in the bladder. There were no bleeding areas seen in the bladder. The resectoscope was removed. A 22-Jordanian Coude 3-way silicone Johnson was passed through the patient's urethra, prostate, and then the bladder without difficulty. Then 20 mL of sterile water were placed in the Johnson's balloon. The efflux was clear. Continuous bladder irrigation was started and will hopefully be stopped early in the morning. Rectal exam was performed. He tolerated the procedure well. Estimated blood loss again a 1000 mL of old clot were removed from the bladder, about 5 mL blood loss during the case. He was taken to the recovery room, extubated in good condition. cc: Shai Mitchell MD
[2019-04-02] MEDS: LIPITOR PO SCH (20:44)
[2019-04-03] MEDS: HUMULIN R SUBQ SCH ×3 (06:12→16:49)
[2019-04-03] MEDS ORDERED: PRILOSEC PO SCH (07:00)
[2019-04-03] MEDS: PENTASA PO SCH ×2 (08:53→13:56)
[2019-04-03] MEDS: ZYLOPRIM PO SCH (08:54)
[2019-04-03] MEDS: LEVAQUIN PO SCH (08:54)
[2019-04-03] MEDS: LOPRESSOR PO SCH (08:54)
[2019-04-03] MEDS: PAXIL PO SCH (08:54)
[2019-04-03] MEDS ORDERED: MIRALAX PO SCH (11:30)
[2019-04-03 16:06] VITALS: BP 148/82
[2019-04-03 17:24] LABS: BASO# 0.06 X1000 (0.0-0.2); BASO% 0.5 % (0.0-0.8); EOS# 0.68 X1000 (0.0-0.7); EOS% 5.9 % (0.0-10.0); HEMATOCRIT 35.5 % (42.0-52.0); HEMOGLOBIN 11.2 g/dL (14.0-18.0); IMM GRAN# 0.04 X1000 (0.0-0.04); IMM GRAN% 0.3 % (0.0-0.5); LYMPH# 2.16 X1000 (1.2-3.4); LYMPH% 18.8 % (20.5-51.1); MCH 30.4 PG (27-31); MCHC 31.5 g/dL (33-37); MCV 96.2 FL (81-99); MONO# 0.73 X1000 (0.11-0.59); MONO% 6.4 % (1.7-9.3); MPV 11.2 FL (7.4-10.4); NEUT# 7.81 X1000 (1.4-6.5); NEUT% 68.1 % (42.2-75.2); PLT 335 X1000 (130-400); RBC 3.69 XMIL (4.7-6.1); WBC 11.48 X1000 (4.8-10.8)
--- NOTE | 2019-04-06 04:19 | DISCHARGE SUMMARY ---
ADMISSION DATE: 03/31/2019 DISCHARGE DATE: 04/03/2019 CONSULTANTS: Urology, Dr. Mitchell. PERTINENT STUDIES: Initial hemoglobin 11.7 and discharge hemoglobin 11.2. Urinalysis with large amounts of blood. DISCHARGE DIAGNOSES: 1. Bladder tumor. 2. Gross hematuria. 3. Urine retention secondary to hematuria. 4. Chronic atrial fibrillation. 5. Crohn's disease. 6. Diabetes mellitus. 7. Hypertension. 8. Hyperlipidemia. HOSPITAL COURSE: This is a patient with a recent diagnosis of bladder tumor, who underwent cystoscopy and resection approximately 2 weeks prior to admission. He came in with suprapubic pain and gross hematuria. He was found to have urine retention secondary to clot formation and obstruction. Urology saw the patient and he was placed on continuous bladder irrigation. Urology ended up performing a cystoscopy with curettage of the bleeding areas. His hematuria did seem to resolve afterwards. On the day of discharge, his Johnson was removed and he was able to urinate spontaneously with no difficulty or discomfort. His hematuria remained resolved. He was discharged to follow up with his PCP and Urology. DISCHARGE VITALS: Temperature 97.5 degrees, pulse 89, respirations 21, blood pressure 148/82, O2 saturation 99% on room air. DISCHARGE DIET: Regular. DISCHARGE MEDICATIONS: Atorvastatin 40 mg p.o. at bedtime, allopurinol 300 mg p.o. daily, clonazepam as previously prescribed, losartan 100 mg p.o. daily, fenofibrate 160 mg p.o. daily, metoprolol 50 mg p.o. b.i.d., metformin 850 mg p.o. b.i.d., Norvasc 10 mg p.o. daily, Paxil 20 mg p.o. daily, mesalamine 1000 mg p.o. 4 times a day. PLAN: The patient is discharged home to follow up with PCP and urology. The patient is to return for treatment if hematuria or difficulty urinating returns.
== END 2019-04-03 17:25 | disposition home or self-care (01) | DRG 908 ==
LOC: 2N 22:09 → 4N 22:09 → P.ED 22:09 → SUATTDRO 03-31 01:29
PROVIDERS: ATTEND Internal Medicine